=== PATIENT | male | born 1975 | race Caucasian/White ===

== ENCOUNTER → 2022-08-19 | Day surgery (SDC) | payer OTHER ==
[~2022-08-19] MED LIST: BUPROPION HCL150 M2 PO; CLARITIN10 MG PO; FOLIC ACID PO; LIDOCAINE HCL 2% LOCAL INJ 5 ML SDV VIAL INJ ONE; LIPITOR10 MG PO; NALTREXONE HCL50 MG PO; PROPOFOL IV EMULSION 10 MG/ML 20 ML VIAL ONE; VITAMIN B-1100 M1 PO
[2022-08-19 11:00] VITALS: BP 128/90
== END | disposition home or self-care (01) ==
LOC: OR 07:31
PROVIDERS: ATTEND Internal Medicine Gastroenterology
DX: Z12.11 Encounter for screening for malignant neoplasm of colon (principal); D12.2 Benign neoplasm of ascending colon; D12.4 Benign neoplasm of descending colon; K29.70 Gastritis, unspecified, without bleeding; K21.9 Gastro-esophageal reflux disease without esophagitis; K44.9 Diaphragmatic hernia without obstruction or gangrene; R19.4 Change in bowel habit; K57.30 Diverticulosis of large intestine without perforation or abscess without bleeding; E78.5 Hyperlipidemia, unspecified; H91.90 Unspecified hearing loss, unspecified ear; F17.220 Nicotine dependence, chewing tobacco, uncomplicated; Z01.810 Encounter for preprocedural cardiovascular examination; Z79.899 Other long term (current) drug therapy
CPT/HCPCS: 43239; 45381; 45384; 45385; 93005; J2001; J2704; 43235; 45378; 45380

== ENCOUNTER → 2023-02-10 | Day surgery (SDC) | payer OTHER ==
[~2023-02-10] MED LIST changes: +LACTATED RINGER'S 1,000 ML ONE; +MIDAZOLAM HCL 2 MG/2 ML VIAL ONE
[2023-02-10 11:05] VITALS: BP 105/80; PULSE 62; RESP 16; O2SAT 99
== END | disposition home or self-care (01) ==
LOC: OR 07:54
PROVIDERS: ATTEND Internal Medicine Gastroenterology
DX: Z09 Encounter for follow-up examination after completed treatment for conditions other than malignant neoplasm (principal); D12.3 Benign neoplasm of transverse colon; K57.30 Diverticulosis of large intestine without perforation or abscess without bleeding; K64.8 Other hemorrhoids; Z01.810 Encounter for preprocedural cardiovascular examination; Z79.899 Other long term (current) drug therapy
CPT/HCPCS: 45384; 88305; 93005; J2001; J2250; J2704; J7121; 45378